=== PATIENT | male | born 1985 | race Caucasian/White ===

== ENCOUNTER 2021-05-02 22:02 | Emergency (ER) | payer MEDICAID ==
[~2021-05-02] VITALS: Ht 185.4 cm; Wt 129.3 kg
[2021-05-02] MEDS ORDERED: IBUPROFEN200 M1 PO (22:26)
[2021-05-02] MEDS ORDERED: WELLBUTRIN SR100 MG PO (22:27)
== END 2021-05-03 00:28 | disposition home or self-care (01) ==
LOC: ED 22:02
DX: E87.6 Hypokalemia (principal); G93.3 Postviral and related fatigue syndromes; Z88.8 Allergy status to other drugs, medicaments and biological substances; Z79.899 Other long term (current) drug therapy
CPT/HCPCS: 71045; 80048; 85025; 85379; 99285-25